=== PATIENT | female | born 1990 | race Caucasian/White ===

== ENCOUNTER → 2021-11-05 | Outpatient (CLI) | payer OTHER | LOC: RAD 08:10 | DX: M25.562 Pain in left knee (principal) ==

== ENCOUNTER → 2022-05-09 | Outpatient (CLI) | payer BC ==
[2022-05-09 11:27] LABS: BASO # 0.03 K/mm3 (0.02-0.10); EOS # 0.09 K/mm3 (0.04-0.40); EOS % 0.9 % (1.0-5.0); HEMOGLOBIN 13.6 g/dL (12.5-16.0); LYMPH# 2.56 K/mm3 (1.50-4.00); MEAN CELL VOLUME 88 fl (78-100); MEAN CORPUSCULAR HEMOGLOBIN 29 pg (27-31); MEAN CORPUSCULAR HGB CONC 33 g/dL (33-37); MEAN PLATELET VOLUME 10.7 fl (7.4-10.4); MONO # 0.63 K/mm3 (0.20-0.80); NEU # 6.22 K/mm3 (1.40-6.50); PLATELET COUNT 237 K/mm3 (130-400); RED BLOOD COUNT 4.68 M/mm3 (4.10-5.30); RED CELL DISTRIBUTION WIDTH 12.4 % (11.5-14.5); WHITE BLOOD COUNT 9.5 K/mm3 (4.8-10.8)
[2022-05-09 11:31] LABS: ALBUMIN 3.9 g/dL (3.5-5.0); POTASSIUM 3.7 mmol/L (3.5-5.1)
[2022-05-09 11:32] LABS: CALCIUM 9.1 mg/dL (8.3-10.5)
[2022-05-09 11:35] LABS: TOTAL BILIRUBIN 0.6 mg/dL (0.2-1.2)
== END ==
LOC: LAB 11:05
PROVIDERS: Physician Assistant
DX: Z30.9 Encounter for contraceptive management, unspecified (principal); K58.0 Irritable bowel syndrome with diarrhea; F41.8 Other specified anxiety disorders; K90.9 Intestinal malabsorption, unspecified; R45.4 Irritability and anger; R63.5 Abnormal weight gain